=== PATIENT | male | born 1985 | race Caucasian/White ===

== ENCOUNTER 2022-12-04 12:45 | Emergency (ER) | payer OTHER, MEDICAID, SELFPAY ==
[2022-12-04 12:55] VITALS: BP 144/103; PULSE 98; RESP 16; TEMP 36.2; O2SAT 97; BMI 23.6
[2022-12-04 13:19] LABS: Appearance Urine UA CLEAR; Bilirubin Urine UA NEGATIVE (NEGATIVE); Color Urine UA YELLOW; Glucose Urine UA NEGATIVE (Negative); Ketones Urine UA NEGATIVE (NEGATIVE); Leukocyte Esterase Urine UA NEGATIVE (NEGATIVE); Nitrite Urine UA NEGATIVE (Negative); Occult Blood Urine UA NEGATIVE (Negative); Protein Urine UA TRACE (Negative); Specific Gravity Urine UA 1.015 (1.000-1.035); Urobilinogen Urine UA 0.2 E.U./dL (0.2)
--- NOTE | 2022-12-04 13:30 | PC.NURSE ---
Addendum entered by Matilde Crow CNA 12/04/22 17:05: provider and friend bedside speaking with pt. Addendum entered by Matilde Crow CNA 12/04/22 16:48: pt. lying down. friend and INFORMATICS EDUCATOR at bedside Addendum entered by Matilde Crow CNA 12/04/22 16:30: pt. laying down with eyes closed, snoring. respirations are even and non labored. left meal tray on bedside table. pt. friend bryan is bedside. Addendum entered by Matilde Crow CNA 12/04/22 14:30: pt. lying down, scottie Molina is bedside Addendum entered by Matilde Crow CNA 12/04/22 14:15: pt. lying down, RN bedside speaking with pt. Addendum entered by Matilde Crow CNA 12/04/22 14:01: pt. sitting up in bed eating chips Original Note: MATERIALS HANDLER note pt. lying on bed. friend is bedside
[2022-12-04 13:32] LABS: UR Morphine/Opiate cutoff 300 Negative (Negative); Ur Creatinine Normal (Normal); Ur Specific Gravity Normal (Normal); Urine Amphetamines Negative (Negative); Urine Barbiturates Negative (Negative); Urine Benzodiazepines Negative (Negative); Urine Cocaine Negative (Negative); Urine MDMA Negative (Negative); Urine Methadone Negative (Negative); Urine Methamphetamines Negative (Negative); Urine Oxycodone Negative (Negative); Urine Phencyclidine Negative (Negative); Urine Tetrahydrocannabinol Negative (Negative); Urine Tricyclic Antidepressant Negative (Negative); Urine pH Normal (Normal)
[2022-12-04 13:48] LABS: Bacteria Urine None Seen; COVID19 -Nasal RAPID Negative (Negative); Culture Indicated Urine Cult Not Indicated; RBC Urine None Seen (0-5/HPF); Squamous Epithelial Cell Urine None Seen (0-5/HPF); WBC Urine None Seen (0-5/HPF)
[2022-12-04] MEDS: LORazepam 2 MG/ML INJ 1 MG IV ×4 (13:50→21:19)
[2022-12-04 13:53] LABS: Add Manual Diff / Slide Review NO; Basophils Absolute Auto 100 /uL (0-100); Basophils Percent Auto 1.1 % (0-2); Eosinophils Absolute Auto 0 /uL (0-450); Eosinophils Percent Auto 0.3 % (2-4); Hematocrit 41.2 % (41-53); Hemoglobin 14.2 g/dL (13.5-17.5); Lymphocytes Absolute Auto 1400 /uL (1100-4500); Lymphocytes Percent Auto 21.6 % (25-40); Mean Corpuscular HGB Conc 34.6 % (30-36); Mean Corpuscular Hemoglobin 32.5 PG (26-34); Mean Corpuscular Volume 93.9 fL (80-100); Monocytes Absolute Auto 500 /uL (0-900); Monocytes Percent Auto 7.2 % (3-14); Neutrophils Absolute Auto 4600 /uL (1500-7000); Neutrophils Percent Auto 69.8 % (50-75); Platelet Count 203 X10^3/uL (150-400); Red Blood Cell Count 4.38 X10^6/uL (4.5-5.9); Red Cell Distribution Width 12.5 % (11.6-14.8); White Blood Cell Count 6.6 X10^3/uL (4.5-11.0)
--- NOTE | 2022-12-04 13:57 | CM.SWNOTE ---
INSPECTOR FLOOR Assessment INSPECTOR FLOOR - Sweatband Cutting Machine Operator Assessment INSPECTOR FLOOR/Sweatband Cutting Machine Operator Assessment Time Spent with Patient Start date 12/04/22 Visit Start Time 12:55 End date 12/04/22 Visit End Time 13:05 Total time Care Management spent on 15 minutes patient visit-in minutes Mental Health Screening Include Onset, Duration, Intensity Presenting Problem Patient presents to ED with friend due to patient's increasing SI, relapse on ETOH and increasing depression and anxiety. Patient has thoughts of SI plans but states I don't want to do anything stupid . Patient endorses hx of suicide attempt when he was 24 . Precipitating Event(s) Patient presents as tearful and asks friend to describe what has been going on recently for patient. It is reported that patient's girlfriend broke up with him last week, patient has been having job stressors and recently lost his job, and patient relapsed on ETOH after months of sobriety. Patient endorses he recently moved to the area as well. Patient Strengths Patient has very supportive friend who called [facility] and consulted with [facility] and patient was recommended to go to ED. Patient is voluntary and seeking BH/JUSTIN treatment. Current Behavioral Health Provider(s) No current provider, patient Include Facility, Provider, Ph. # endorses interest in MH provider. Patient endorses hx of engaging with 12 step program. Psych. Hx Mental Health and Chemical Patient has hx reported Dependency anxiety, depression, SI, Suicide attempt and hx of ETOH use. Patient endorses that he was sober for a few months until recent relapse after breakup and has been drinking a lot of Whiskey. Family Hx of Behavioral Abuse None reported Psychiatric Hospitalizations (date(s)/ Patient endorses hx of location) voluntary hospitalization at [facility] in 2019 and hx of hospitalization after intentional overdose when he was 24 but patient endorses he does not recall where he went . Psychosocial information & Support Patient is recently homeless, Systems resides on [place], [place]. Patient has good support from friend that is with him today and friends in the area. 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 Legal Concerns Legal Matters - Outstanding Issues None reported Mental Status Orientation (Person/Place/Time) A/Ox4 Stated Mood trying to hold it together Affect (Congruent with Mood?) depressed, tearful, full range , congruent with mood Thought Content - Specify/Describe None reported Obsessions, Delusions, Hallucinations Thought Processes (Xzlbims-Cgdsecqk-Eclu coherent Ddclsqeb-Kgkypkql-Kooprlbbng- Mxnddqlepbgmic-Nmzyzof-Ldjgptensetz- Thought Blocking) Speech (Tkzvty-Kphp-Pnhferb-Rapid-Soft- slow, mumbles when tearful Loud-Pressured) Motor (Obkpwk-Bvkuozphv-Lbvx-Other) normal Insight (Djdu-Vhce-Qvxq/Limited) fair Judgement (Dxtx-Lxjl-Uwda/Limited) fair Impulse Control (Adequate-Impaired) adequate Memory (Obcnryjtz-Kukkni-Cfvceq, intact, not formally assessed Impaired-Intact) Concentration (Intact-Impaired) intact Attention (Intact-Impaired) intact Behavior (Appropriate-Inappropriate) appropriate Additional Comment Patient presents as calm, communicative and cooperative. Risk Assessment Suicidal Ideation (Plan) Yes Homicidal Ideation (Plan) No Comment Patient endorses increasing SI in the last week with thoughts of crashing his car, patient endorses he does not want to act on it. Patient endorses hx of intentional suicide attempt when he was 24 , 13 years ago when he overdosed on medication, woke up in a hospital bed and went to inpatient. Intervention Intervention INSPECTOR FLOOR enters triage room to meet with patient. Present in room is patient, patient's friend and first cook. Patient gives consent for friend to be present. Patient presents as depressed and tearful and has a difficult time talking about significant life stressors recently. Patient's friend is asked by patient to speak for him. Patient endorses he is seeking help and he is worried for his safety due to his increasing SI. INSPECTOR FLOOR discusses voluntary hospitalization and patient endorses agreement and understanding. It is the opinion of this INSPECTOR FLOOR that patient is appropriate for and will benefit from voluntary inpatient hospitalization for crisis stabilization, safety and medication management. INSPECTOR FLOOR reviews the above with ED provider GENI Graham who indicates agreement and understanding. Plan RA Plan INSPECTOR FLOOR to seek voluntary inpatient bed for patient upon medical clearance. APARNA JaySW
[2022-12-04 14:08] LABS: Acetaminophen < 10 ug/mL (10-30); Alanine Aminotransferase 19 IU/L (<50); Albumin 4.5 g/dL (3.5-5.0); Albumin Globulin Ratio 1.4 (1.0-2.8); Alkaline Phosphatase 58 U/L (38-126); Aspartate Aminotransferase 32 IU/L (17-59); BUN Creatinine Ratio 9.9 (6-22); Bilirubin Total 0.4 mg/dL (0.2-1.3); Blood Urea Nitrogen 7 mg/dL (9-20); Carbon Dioxide 27 mmol/L (22-32); Chloride 102 mmol/L (98-107); Estimated Glomerular Filt Rate > 60 mL/min (>60); Ethanol (ETOH) < 10 mg/dL; Globulin 3.3 g/dL (1.7-4.1); Glucose 93 mg/dL (70-100); HEMOLYSIS < 15 (0-50); Potassium 3.7 mmol/L (3.4-5.1); Salicylate < 1.0 mg/dL (<20); Sodium 139 mmol/L (137-145); Total Protein 7.8 g/dL (6.3-8.2)
--- NOTE | 2022-12-04 14:24 | PC.NURSE ---
This RNs first conversation with patient. Pt states he has hx of psychiatric treatment, hospitalization and psych medications. States he's been sober for 30 days, no longer has an AA sponsor and his girlfriend just broke up with him. Pt states he has suicidal ideation and wants psychiatric evaluation and hospitalization. Patient reports he started the day yesterday drinking wine, then transitioned to liquor, then to IPA/Lagers until midnight. States he is homeless and will be living in his van in a friend's driveway soon. Pt states he has no family that he is in touch with at this time. Pt came to ED with a friend who just recently left. New friend is in the room with patient. Provider at the bedside.
--- NOTE | 2022-12-04 14:43 | ED_ITS ---
HPI - Psych <Sam Bryant PA-C - Last Filed: 12/04/22 20:32> General Chief Complaint: Psychiatric Symptoms Stated Complaint: [facility] sent/ SI/ETOH withdrawl Time Seen by Provider: 12/04/22 13:04 History of Present Illness HPI Narrative: 37-year-old male with no reported past medical history presents to the ED for voluntary hospitalization for suicidal ideation and alcohol detox. Patient endorses that he used to be a heavy alcohol drinker, however he was able to detox and stay sober for a month or 2, but started drinking last week. Patient states that his relapse was due to a break-up with his girlfriend that occurred last week. Patient states that he feels like he is falling apart and would like some help. Patient endorses suicidal ideation, says he has thought of driving his van of the road. Patient not acted on those thoughts thus far. Patient does endorse that he has a distant history of a suicide attempt where he tried to overdose on some pills. This was when he was in his mid 20s. Patient states that he is feeling very anxious. Patient is very tearful in the ED. Patient denies auditory or visual hallucinations. Patient denies homicidal ideation. Patient states that he has had a hard time eating and sleeping over the last week. Patient endorses drinking heavily over this last week. Patient's last drink was last night. Patient endorses that he has a history of going into withdrawals when he is heavily drinking, but denies that he is experiencing any of those symptoms currently in the ED. Patient has not seen a counselor or psychiatrist in the past and is not on any psychiatric medications. Patient denies any physical symptoms including fevers, chills, chest pain, shortness of breath, nausea, vomiting, abdominal pain, dysuria, diarrhea, lightheadedness, dizziness, syncope. Related Data Allergies Allergy/AdvReac Type Severity Reaction Status Date / Time amoxicillin Allergy Verified 12/04/22 12:54 Review of Systems <Sam Bryant PA-C - Last Filed: 12/04/22 20:32> Review of Systems ROS Unobtainable: All systems reviewed & are unremarkable except as noted in HPI and below Constitutional Constitutional: Denies chills, Denies fatigue, Denies fever(s), Denies frequent falls, Denies lethargy and Denies weakness Eyes Eyes: Denies change in vision, Denies eye discharge, Denies irritation and Denies loss of vision ENT Ears, Nose, Mouth, and Throat: Denies change in voice, Denies dizziness, Denies neck pain, Denies sore throat and Denies throat swelling Cardiovascular Cardiovascular: Denies chest pain, Denies irregular heart rhythm, Denies lightheadedness, Denies palpitations, Denies dyspnea, Denies dyspnea on exertion and Denies orthopnea Respiratory Respiratory: Denies cough, Denies dyspnea, Denies dyspnea on exertion and Denies wheezing Gastrointestinal Gastrointestinal: Denies abdominal pain, Denies change in bowel habits, Denies diarrhea, Denies nausea and Denies vomiting Genitourinary Genitourinary: Denies hematuria, Denies flank pain, Denies urinary incontinence and Denies urinary urgency Musculoskeletal Musculoskeletal: Denies back pain, Denies muscle weakness, Denies neck pain, Denies numbness and Denies tingling Integumentary/Breasts Skin/Breast: Denies pruritus, Denies erythema, Denies rash and Denies wounds Neurologic Neurologic: Denies behavioral changes, Denies confusion, Denies dizziness, Denies frequent falls, Denies loss of vision, Denies numbness, Denies tingling and Denies weakness Psychiatric Psychiatric: Reports abnormal sleep pattern, Reports anxiety, Denies behavioral changes, Reports change in appetite, Denies confusion, Reports depression, Denies auditory hallucinations, Denies visual hallucinations, Denies homicidal ideation and Reports suicidal ideation Endocrine Endocrine: Denies fatigue, Denies flushing and Denies palpitations Hematologic/Lymphatic Hematologic/Lymphatic: Denies easy bruising Allergic/Immunologic Allergic/Immunologic: Denies urticaria, Denies throat swelling and Denies wheez ing Exam <Sam Bryant PA-C - Last Filed: 12/04/22 20:32> Narrative Exam Narrative: Const General:?cooperative, teary HENMT Head:?normal to inspection Ears:?hearing grossly normal bilaterally Nose:?external nose normal Face and sinus:?normal facial exam and sinuses nontender Mouth:?oral mucosae normal Throat:?posterior oropharynx normal Eyes General:?appearance normal, both eyes and all related structures Neck Neck:?normal visual inspection and no lymphadenopathy noted Resp Effort & Inspection:?normal respiratory effort Auscultation:?clear to auscultation bilaterally Cardio Rate:?regular rate Rhythm:?regular rhythm Psychiatric Patient appears tearful, is cooperative, calm and seeking voluntary placement to a medical health facility Neuro General:?patient alert, patient awake and patient oriented x3 Initial Vital Signs Initial Vital Signs: Vital Signs Temperature 97.1 F L 12/04/22 12:55 Pulse Rate 98 H 12/04/22 12:55 Respiratory Rate 16 12/04/22 12:55 Blood Pressure 144/103 H 12/04/22 12:55 Pulse Oximetry 97 12/04/22 12:55 Oxygen Delivery Method Room Air 12/04/22 12:55 <Brien Arriaga MD - Last Filed: 12/05/22 16:29> Initial Vital Signs Initial Vital Signs: Vital Signs Temperature 97.1 F L 12/04/22 12:55 Pulse Rate 98 H 12/04/22 12:55 Respiratory Rate 16 12/04/22 12:55 Blood Pressure 144/103 H 12/04/22 12:55 Pulse Oximetry 97 12/04/22 12:55 Oxygen Delivery Method Room Air 12/04/22 12:55 Course <Sam Bryant PA-C - Last Filed: 12/04/22 20:32> Orders Ordered: Discontinued Medications Lorazepam (Lorazepam 0.5 Mg Tablet) 1 mg PO NOW ONE Stop: 12/04/22 13:23 Last Admin: 12/04/22 14:07 Dose: Not Given Documented By: GORDO Lorazepam (Lorazepam 2 Mg/Ml Inj) 1 mg IV NOW ONE Stop: 12/04/22 13:25 Last Admin: 12/04/22 13:50 Dose: 1 mg Documented By: JAZMYNE Lorazepam (Lorazepam 2 Mg/Ml Inj) 1 mg IV NOW ONE Stop: 12/04/22 15:25 Last Admin: 12/04/22 15:39 Dose: 1 mg Documented By: JAZMYNE Lorazepam (Lorazepam 2 Mg/Ml Inj) 1 mg IV NOW ONE Stop: 12/04/22 18:08 Last Admin: 12/04/22 18:10 Dose: 1 mg Documented By: GORDO(2) Lorazepam (Lorazepam 2 Mg/Ml Inj) 1 mg IV NOW ONE Stop: 12/04/22 21:00 Last Admin: 12/04/22 21:19 Dose: 1 mg Documented By: ERIKA Lorazepam (Lorazepam 2 Mg/Ml Inj) 1 mg IV NOW ONE Stop: 12/05/22 05:10 Last Admin: 12/05/22 05:22 Dose: 1 mg Documented By: WILY Lorazepam (Lorazepam 0.5 Mg Tablet) 1 mg PO NOW ONE Stop: 12/05/22 09:06 Last Admin: 12/05/22 09:10 Dose: 1 mg Documented By: JIGNESH Lorazepam (Lorazepam 0.5 Mg Tablet) 1 mg PO NOW ONE Stop: 12/05/22 11:10 Last Admin: 12/05/22 11:25 Dose: 1 mg Documented By: JIGNESH Lorazepam (Lorazepam 0.5 Mg Tablet) 1 mg PO NOW ONE Stop: 12/05/22 14:34 Last Admin: 12/05/22 14:37 Dose: 1 mg Documented By: RB Vital Signs Vital signs: Vital Signs - 8 hr 12/05/22 09:03 12/05/22 13:27 Pulse Rate 113 H 101 H Blood Pressure 155/85 H 129/80 Pulse Oximetry 100 98 Oxygen Delivery Method Room Air Room Air <Brien Arriaga MD - Last Filed: 12/05/22 16:29> Course Course Narrative: Care was assumed from Dr. Muñoz at change of shift this morning. Patient has a history of alcohol abuse. He presents with suicidal ideation. He complains anxiety, Ativan has been given. There was assumed bed available at [facility] once sobriety was obvious. Change in shift resulted in a 2nd evaluation by 2nd doctor, who declined the patient on the assumption that he has dual diagnosis. A bed is available [facility]. He has been accepted. Injuring the patient, he complains again of anxiety. We will continue to give a modest amount of Ativan while here in the ER. I questioned him about suicidal ideation. He did not clearly answer me, but eye contact was broken and he started crying. He is compliant with care. He is oriented. He is stable for transport to the mental health facility.12/05/22@15:52. Haile GAMING Orders Ordered: Discontinued Medications Lorazepam (Lorazepam 0.5 Mg Tablet) 1 mg PO NOW ONE Stop: 12/04/22 13:23 Last Admin: 12/04/22 14:07 Dose: Not Given Documented By: GORDO Lorazepam (Lorazepam 2 Mg/Ml Inj) 1 mg IV NOW ONE Stop: 12/04/22 13:25 Last Admin: 12/04/22 13:50 Dose: 1 mg Documented By: JAZMYNE Lorazepam (Lorazepam 2 Mg/Ml Inj) 1 mg IV NOW ONE Stop: 12/04/22 15:25 Last Admin: 12/04/22 15:39 Dose: 1 mg Documented By: JAZMYNE Lorazepam (Lorazepam 2 Mg/Ml Inj) 1 mg IV NOW ONE Stop: 12/04/22 18:08 Last Admin: 12/04/22 18:10 Dose: 1 mg Documented By: GORDO(2) Lorazepam (Lorazepam 2 Mg/Ml Inj) 1 mg IV NOW ONE Stop: 12/04/22 21:00 Last Admin: 12/04/22 21:19 Dose: 1 mg Documented By: ERIKA Lorazepam (Lorazepam 2 Mg/Ml Inj) 1 mg IV NOW ONE Stop: 12/05/22 05:10 Last Admin: 12/05/22 05:22 Dose: 1 mg Documented By: WILY Lorazepam (Lorazepam 0.5 Mg Tablet) 1 mg PO NOW ONE Stop: 12/05/22 09:06 Last Admin: 12/05/22 09:10 Dose: 1 mg Documented By: JIGNESH Lorazepam (Lorazepam 0.5 Mg Tablet) 1 mg PO NOW ONE Stop: 12/05/22 11:10 Last Admin: 12/05/22 11:25 Dose: 1 mg Documented By: JIGNESH Lorazepam (Lorazepam 0.5 Mg Tablet) 1 mg PO NOW ONE Stop: 12/05/22 14:34 Last Admin: 12/05/22 14:37 Dose: 1 mg Documented By: JIGNESH Vital Signs Vital signs: Vital Signs - 8 hr 12/05/22 09:03 12/05/22 13:27 Pulse Rate 113 H 101 H Blood Pressure 155/85 H 129/80 Pulse Oximetry 100 98 Oxygen Delivery Method Room Air Room Air MDM - Psych <Sam Bryant PA-C - Last Filed: 12/04/22 20:32> Lab Data 12/04/22 13:42 12/04/22 13:42 Labs: Lab Results 12/04/22 12/04/22 12/04/22 Range/Units 13:03 13:03 13:10 WBC (4.5-11.0) X10^3/uL RBC (4.5-5.9) X10^6/uL Hgb (13.5-17.5) g/dL Hct (41-53) % MCV (80-100) fL MCH (26-34) PG MCHC (30-36) % RDW (11.6-14.8) % Plt Count (150-400) X10^3/uL Neut % (Auto) (50-75) % Lymph % (Auto) (25-40) % [place] % (Auto) (3-14) % Eos % (Auto) (2-4) % Baso % (Auto) (0-2) % Neut # (Auto) (4687-1919) /uL Lymph # (Auto) (4756-7910) /uL [place] # (Auto) (0-900) /uL Eos # (Auto) (0-450) /uL Baso # (Auto) (0-100) /uL Sodium (137-145) mmol/L Potassium (3.4-5.1) mmol/L Chloride (98-107) mmol/L Carbon Dioxide (22-32) mmol/L BUN (9-20) mg/dL Creatinine (0.66-1.25) mg/dL Estimated GFR (>60) mL/min BUN/Creatinine Ratio (6-22) Glucose (70-100) mg/dL Calcium (8.4-10.2) mg/dL Magnesium (1.6-2.3) mg/dL Total Bilirubin (0.2-1.3) mg/dL AST (17-59) IU/L ALT (<50) IU/L Alkaline Phosphatase (38-126) U/L Total Creatine Kinase (55-170) U/L Total Protein (6.3-8.2) g/dL Albumin (3.5-5.0) g/dL Globulin (1.7-4.1) g/dL Albumin/Globulin Ratio (1.0-2.8) TSH (0.47-4.68) uIU/mL Free T4 (0.78-2.19) ng/dL Urine Color Yellow Urine Appearance Clear Urine pH 7.0 (4.5-8.0) Ur Specific [place] 1.015 (1.000-1.035) Urine Protein Trace H (Negative) Urine Glucose (UA) Negative (Negative) g/dL Urine Ketones Negative (NEGATIVE) Urine Occult Blood Negative (Negative) Urine Nitrate Negative (Negative) Urine Bilirubin Negative (NEGATIVE) Urine Urobilinogen 0.2 (0.2) E.U./dL Ur Leukocyte Esterase Negative (NEGATIVE) Urine RBC None seen (0-5/HPF) Urine WBC None seen (0-5/HPF) Ur Squamous Epith Cells None seen (0-5/HPF) Urine Bacteria None seen (None) Ur Culture Indicated? Cult not indicated Salicylates (<20) mg/dL U Opiates 300ng/mL cut Negative (Negative) Ur Oxycodone Screen Negative (Negative) Urine Methadone Screen Negative (Negative) Acetaminophen (10-30) ug/mL Ur Barbiturates Screen Negative (Negative) U Tricyclic Antidepress Negative (Negative) Ur Phencyclidine Scrn Negative (Negative) Ur Amphetamines Screen Negative (Negative) U Methamphetamines Scrn Negative (Negative) Ur MDMA Scrn (Ecstasy) Negative (Negative) U Benzodiazepines Scrn Negative (Negative) Urine Cocaine Screen Negative (Negative) U Marijuana (THC) Screen Negative (Negative) Ethyl Alcohol ( - 10) mg/dL SARS-CoV-2 (PCR) Negative (Negative) 12/04/22 12/04/22 12/04/22 Range/Units 13:42 13:42 13:42 WBC 6.6 (4.5-11.0) X10^3/uL RBC 4.38 L (4.5-5.9) X10^6/uL Hgb 14.2 (13.5-17.5) g/dL Hct 41.2 (41-53) % MCV 93.9 (80-100) fL MCH 32.5 (26-34) PG MCHC 34.6 (30-36) % RDW 12.5 (11.6-14.8) % Plt Count 203 (150-400) X10^3/uL Neut % (Auto) 69.8 (50-75) % Lymph % (Auto) 21.6 L (25-40) % [place] % (Auto) 7.2 (3-14) % Eos % (Auto) 0.3 L (2-4) % Baso % (Auto) 1.1 (0-2) % Neut # (Auto) 4600 (8867-7431) /uL Lymph # (Auto) 1400 (4222-1357) /uL [place] # (Auto) 500 (0-900) /uL Eos # (Auto) 0 (0-450) /uL Baso # (Auto) 100 (0-100) /uL Sodium 139 (137-145) mmol/L Potassium 3.7 (3.4-5.1) mmol/L Chloride 102 (98-107) mmol/L Carbon Dioxide 27 (22-32) mmol/L BUN 7 L (9-20) mg/dL Creatinine 0.71 (0.66-1.25) mg/dL Estimated GFR > 60 (>60) mL/min BUN/Creatinine Ratio 9.9 (6-22) Glucose 93 (70-100) mg/dL Calcium 9.0 (8.4-10.2) mg/dL Magnesium (1.6-2.3) mg/dL Total Bilirubin 0.4 (0.2-1.3) mg/dL AST 32 (17-59) IU/L ALT 19 (<50) IU/L Alkaline Phosphatase 58 (38-126) U/L Total Creatine Kinase (55-170) U/L Total Protein 7.8 (6.3-8.2) g/dL Albumin 4.5 (3.5-5.0) g/dL Globulin 3.3 (1.7-4.1) g/dL Albumin/Globulin Ratio 1.4 (1.0-2.8) TSH 0.287 L (0.47-4.68) uIU/mL Free T4 0.99 (0.78-2.19) ng/dL Urine Color Urine Appearance Urine pH (4.5-8.0) Ur Specific [place] (1.000-1.035) Urine Protein (Negative) Urine Glucose (UA) (Negative) g/dL Urine Ketones (NEGATIVE) Urine Occult Blood (Negative) Urine Nitrate (Negative) Urine Bilirubin (NEGATIVE) Urine Urobilinogen (0.2) E.U./dL Ur Leukocyte Esterase (NEGATIVE) Urine RBC (0-5/HPF) Urine WBC (0-5/HPF) Ur Squamous Epith Cells (0-5/HPF) Urine Bacteria (None) Ur Culture Indicated? Salicylates < 1.0 (<20) mg/dL U Opiates 300ng/mL cut (Negative) Ur Oxycodone Screen (Negative) Urine Methadone Screen (Negative) Acetaminophen < 10 (10-30) ug/mL Ur Barbiturates Screen (Negative) U Tricyclic Antidepress (Negative) Ur Phencyclidine Scrn (Negative) Ur Amphetamines Screen (Negative) U Methamphetamines Scrn (Negative) Ur MDMA Scrn (Ecstasy) (Negative) U Benzodiazepines Scrn (Negative) Urine Cocaine Screen (Negative) U Marijuana (THC) Screen (Negative) Ethyl Alcohol < 10 ( - 10) mg/dL SARS-CoV-2 (PCR) (Negative) 12/04/22 Range/Units 13:42 WBC (4.5-11.0) X10^3/uL RBC (4.5-5.9) X10^6/uL Hgb (13.5-17.5) g/dL Hct (41-53) % MCV (80-100) fL MCH (26-34) PG MCHC (30-36) % RDW (11.6-14.8) % Plt Count (150-400) X10^3/uL Neut % (Auto) (50-75) % Lymph % (Auto) (25-40) % [place] % (Auto) (3-14) % Eos % (Auto) (2-4) % Baso % (Auto) (0-2) % Neut # (Auto) (4710-7790) /uL Lymph # (Auto) (2541-9651) /uL [place] # (Auto) (0-900) /uL Eos # (Auto) (0-450) /uL Baso # (Auto) (0-100) /uL Sodium (137-145) mmol/L Potassium (3.4-5.1) mmol/L Chloride (98-107) mmol/L Carbon Dioxide (22-32) mmol/L BUN (9-20) mg/dL Creatinine (0.66-1.25) mg/dL Estimated GFR (>60) mL/min BUN/Creatinine Ratio (6-22) Glucose (70-100) mg/dL Calcium (8.4-10.2) mg/dL Magnesium 1.8 (1.6-2.3) mg/dL Total Bilirubin (0.2-1.3) mg/dL AST (17-59) IU/L ALT (<50) IU/L Alkaline Phosphatase (38-126) U/L Total Creatine Kinase 77 (55-170) U/L Total Protein (6.3-8.2) g/dL Albumin (3.5-5.0) g/dL Globulin (1.7-4.1) g/dL Albumin/Globulin Ratio (1.0-2.8) TSH (0.47-4.68) uIU/mL Free T4 (0.78-2.19) ng/dL Urine Color Urine Appearance Urine pH (4.5-8.0) Ur Specific [place] (1.000-1.035) Urine Protein (Negative) Urine Glucose (UA) (Negative) g/dL Urine Ketones (NEGATIVE) Urine Occult Blood (Negative) Urine Nitrate (Negative) Urine Bilirubin (NEGATIVE) Urine Urobilinogen (0.2) E.U./dL Ur Leukocyte Esterase (NEGATIVE) Urine RBC (0-5/HPF) Urine WBC (0-5/HPF) Ur Squamous Epith Cells (0-5/HPF) Urine Bacteria (None) Ur Culture Indicated? Salicylates (<20) mg/dL U Opiates 300ng/mL cut (Negative) Ur Oxycodone Screen (Negative) Urine Methadone Screen (Negative) Acetaminophen (10-30) ug/mL Ur Barbiturates Screen (Negative) U Tricyclic Antidepress (Negative) Ur Phencyclidine Scrn (Negative) Ur Amphetamines Screen (Negative) U Methamphetamines Scrn (Negative) Ur MDMA Scrn (Ecstasy) (Negative) U Benzodiazepines Scrn (Negative) Urine Cocaine Screen (Negative) U Marijuana (THC) Screen (Negative) Ethyl Alcohol ( - 10) mg/dL SARS-CoV-2 (PCR) (Negative) [facility] Narrative Medical decision making narrative: 37-year-old male with no reported past medical history presents to the ED for voluntary hospitalization for suicidal ideation and alcohol detox. Given that patient is seeking voluntary hospitalization for mental health reasons and has suicidal ideation, will medically clear patient to rule out organic causes of symptoms. Social work has been involved to assist with patient placement. Ativan given for patient's anxiety. Patient's workup without acute findings. Patient is medically cleared for transfer to a mental health facility. Patient has been stable, calm and [place]ol[place] ative in the ED. Patient's ETOH level was 0 as of 13:03, patient has shown no signs of withdrawal. CIWA scores Q 2 hours have been 0. [facility] is reviewing to see when they can accept the patient. Patient is siged out to Dr. Gurvinder Glez <Brien Arriaga MD - Last Filed: 12/05/22 16:29> Lab Data Labs: Lab Results 12/04/22 12/04/22 12/04/22 Range/Units 13:03 13:03 13:10 WBC (4.5-11.0) X10^3/uL RBC (4.5-5.9) X10^6/uL Hgb (13.5-17.5) g/dL Hct (41-53) % MCV (80-100) fL MCH (26-34) PG MCHC (30-36) % RDW (11.6-14.8) % Plt Count (150-400) X10^3/uL Neut % (Auto) (50-75) % Lymph % (Auto) (25-40) % [place] % (Auto) (3-14) % Eos % (Auto) (2-4) % Baso % (Auto) (0-2) % Neut # (Auto) (1907-0708) /uL Lymph # (Auto) (3059-7429) /uL [place] # (Auto) (0-900) /uL Eos # (Auto) (0-450) /uL Baso # (Auto) (0-100) /uL Sodium (137-145) mmol/L Potassium (3.4-5.1) mmol/L Chloride (98-107) mmol/L Carbon Dioxide (22-32) mmol/L BUN (9-20) mg/dL Creatinine (0.66-1.25) mg/dL Estimated GFR (>60) mL/min BUN/Creatinine Ratio (6-22) Glucose (70-100) mg/dL Calcium (8.4-10.2) mg/dL Magnesium (1.6-2.3) mg/dL Total Bilirubin (0.2-1.3) mg/dL AST (17-59) IU/L ALT (<50) IU/L Alkaline Phosphatase (38-126) U/L Total Creatine Kinase (55-170) U/L Total Protein (6.3-8.2) g/dL Albumin (3.5-5.0) g/dL Globulin (1.7-4.1) g/dL Albumin/Globulin Ratio (1.0-2.8) TSH (0.47-4.68) uIU/mL Free T4 (0.78-2.19) ng/dL Urine Color Yellow Urine Appearance Clear Urine pH 7.0 (4.5-8.0) Ur Specific [place] 1.015 (1.000-1.035) Urine Protein Trace H (Negative) Urine Glucose (UA) Negative (Negative) g/dL Urine Ketones Negative (NEGATIVE) Urine Occult Blood Negative (Negative) Urine Nitrate Negative (Negative) Urine Bilirubin Negative (NEGATIVE) Urine Urobilinogen 0.2 (0.2) E.U./dL Ur Leukocyte Esterase Negative (NEGATIVE) Urine RBC None seen (0-5/HPF) Urine WBC None seen (0-5/HPF) Ur Squamous Epith Cells None seen (0-5/HPF) Urine Bacteria None seen (None) Ur Culture Indicated? Cult not indicated Salicylates (<20) mg/dL U Opiates 300ng/mL cut Negative (Negative) Ur Oxycodone Screen Negative (Negative) Urine Methadone Screen Negative (Negative) Acetaminophen (10-30) ug/mL Ur Barbiturates Screen Negative (Negative) U Tricyclic Antidepress Negative (Negative) Ur Phencyclidine Scrn Negative (Negative) Ur Amphetamines Screen Negative (Negative) U Methamphetamines Scrn Negative (Negative) Ur MDMA Scrn (Ecstasy) Negative (Negative) U Benzodiazepines Scrn Negative (Negative) Urine Cocaine Screen Negative (Negative) U Marijuana (THC) Screen Negative (Negative) Ethyl Alcohol ( - 10) mg/dL SARS-CoV-2 (PCR) Negative (Negative) 12/04/22 12/04/22 12/04/22 Range/Units 13:42 13:42 13:42 WBC 6.6 (4.5-11.0) X10^3/uL RBC 4.38 L (4.5-5.9) X10^6/uL Hgb 14.2 (13.5-17.5) g/dL Hct 41.2 (41-53) % MCV 93.9 (80-100) fL MCH 32.5 (26-34) PG MCHC 34.6 (30-36) % RDW 12.5 (11.6-14.8) % Plt Count 203 (150-400) X10^3/uL Neut % (Auto) 69.8 (50-75) % Lymph % (Auto) 21.6 L (25-40) % [place] % (Auto) 7.2 (3-14) % Eos % (Auto) 0.3 L (2-4) % Baso % (Auto) 1.1 (0-2) % Neut # (Auto) 4600 (4274-9957) /uL Lymph # (Auto) 1400 (6756-9346) /uL [place] # (Auto) 500 (0-900) /uL Eos # (Auto) 0 (0-450) /uL Baso # (Auto) 100 (0-100) /uL Sodium 139 (137-145) mmol/L Potassium 3.7 (3.4-5.1) mmol/L Chloride 102 (98-107) mmol/L Carbon Dioxide 27 (22-32) mmol/L BUN 7 L (9-20) mg/dL Creatinine 0.71 (0.66-1.25) mg/dL Estimated GFR > 60 (>60) mL/min BUN/Creatinine Ratio 9.9 (6-22) Glucose 93 (70-100) mg/dL Calcium 9.0 (8.4-10.2) mg/dL Magnesium (1.6-2.3) mg/dL Total Bilirubin 0.4 (0.2-1.3) mg/dL AST 32 (17-59) IU/L ALT 19 (<50) IU/L Alkaline Phosphatase 58 (38-126) U/L Total Creatine Kinase (55-170) U/L Total Protein 7.8 (6.3-8.2) g/dL Albumin 4.5 (3.5-5.0) g/dL Globulin 3.3 (1.7-4.1) g/dL Albumin/Globulin Ratio 1.4 (1.0-2.8) TSH 0.287 L (0.47-4.68) uIU/mL Free T4 0.99 (0.78-2.19) ng/dL Urine Color Urine Appearance Urine pH (4.5-8.0) Ur Specific [place] (1.000-1.035) Urine Protein (Negative) Urine Glucose (UA) (Negative) g/dL Urine Ketones (NEGATIVE) Urine Occult Blood (Negative) Urine Nitrate (Negative) Urine Bilirubin (NEGATIVE) Urine Urobilinogen (0.2) E.U./dL Ur Leukocyte Esterase (NEGATIVE) Urine RBC (0-5/HPF) Urine WBC (0-5/HPF) Ur Squamous Epith Cells (0-5/HPF) Urine Bacteria (None) Ur Culture Indicated? Salicylates < 1.0 (<20) mg/dL U Opiates 300ng/mL cut (Negative) Ur Oxycodone Screen (Negative) Urine Methadone Screen (Negative) Acetaminophen < 10 (10-30) ug/mL Ur Barbiturates Screen (Negative) U Tricyclic Antidepress (Negative) Ur Phencyclidine Scrn (Negative) Ur Amphetamines Screen (Negative) U Methamphetamines Scrn (Negative) Ur MDMA Scrn (Ecstasy) (Negative) U Benzodiazepines Scrn (Negative) Urine Cocaine Screen (Negative) U Marijuana (THC) Screen (Negative) Ethyl Alcohol < 10 ( - 10) mg/dL SARS-CoV-2 (PCR) (Negative) 12/04/22 Range/Units 13:42 WBC (4.5-11.0) X10^3/uL RBC (4.5-5.9) X10^6/uL Hgb (13.5-17.5) g/dL Hct (41-53) % MCV (80-100) fL MCH (26-34) PG MCHC (30-36) % RDW (11.6-14.8) % Plt Count (150-400) X10^3/uL Neut % (Auto) (50-75) % Lymph % (Auto) (25-40) % [place] % (Auto) (3-14) % Eos % (Auto) (2-4) % Baso % (Auto) (0-2) % Neut # (Auto) (6433-8898) /uL Lymph # (Auto) (4495-3206) /uL [place] # (Auto) (0-900) /uL Eos # (Auto) (0-450) /uL Baso # (Auto) (0-100) /uL Sodium (137-145) mmol/L Potassium (3.4-5.1) mmol/L Chloride (98-107) mmol/L Carbon Dioxide (22-32) mmol/L BUN (9-20) mg/dL Creatinine (0.66-1.25) mg/dL Estimated GFR (>60) mL/min BUN/Creatinine Ratio (6-22) Glucose (70-100) mg/dL Calcium (8.4-10.2) mg/dL Magnesium 1.8 (1.6-2.3) mg/dL Total Bilirubin (0.2-1.3) mg/dL AST (17-59) IU/L ALT (<50) IU/L Alkaline Phosphatase (38-126) U/L Total Creatine Kinase 77 (55-170) U/L Total Protein (6.3-8.2) g/dL Albumin (3.5-5.0) g/dL Globulin (1.7-4.1) g/dL Albumin/Globulin Ratio (1.0-2.8) TSH (0.47-4.68) uIU/mL Free T4 (0.78-2.19) ng/dL Urine Color Urine Appearance Urine pH (4.5-8.0) Ur Specific [place] (1.000-1.035) Urine Protein (Negative) Urine Glucose (UA) (Negative) g/dL Urine Ketones (NEGATIVE) Urine Occult Blood (Negative) Urine Nitrate (Negative) Urine Bilirubin (NEGATIVE) Urine Urobilinogen (0.2) E.U./dL Ur Leukocyte Esterase (NEGATIVE) Urine RBC (0-5/HPF) Urine WBC (0-5/HPF) Ur Squamous Epith Cells (0-5/HPF) Urine Bacteria (None) Ur Culture Indicated? Salicylates (<20) mg/dL U Opiates 300ng/mL cut (Negative) Ur Oxycodone Screen (Negative) Urine Methadone Screen (Negative) Acetaminophen (10-30) ug/mL Ur Barbiturates Screen (Negative) U Tricyclic Antidepress (Negative) Ur Phencyclidine Scrn (Negative) Ur Amphetamines Screen (Negative) U Methamphetamines Scrn (Negative) Ur MDMA Scrn (Ecstasy) (Negative) U Benzodiazepines Scrn (Negative) Urine Cocaine Screen (Negative) U Marijuana (THC) Screen (Negative) Ethyl Alcohol ( - 10) mg/dL SARS-CoV-2 (PCR) (Negative) Discharge Plan Departure Patient Disposition: Xfer [facility] Clinical Impression: Suicidal ideation, Depression, Acute anxiety Referrals: Miscellaneous,Doctor, [Primary Care Provider] -
[2022-12-04 15:21] LABS: Free T4, Direct Thyroxine 0.99 ng/dL (0.78-2.19)
[2022-12-04 15:35] LABS: Thyroid Stimulating Hormone 0.287 uIU/mL (0.47-4.68)
[2022-12-04 15:51] LABS: Creatine Kinase 77 U/L (55-170); Magnesium 1.8 mg/dL (1.6-2.3)
[2022-12-04 16:04] VITALS: BP 127/72; PULSE 90; O2SAT 98
--- NOTE | 2022-12-04 19:16 | PC.NURSE ---
Pt has a zero CIWA, provider aware. Pt is receiving ativan PRN for anxiety related to life stressors.
--- NOTE | 2022-12-04 19:18 | CM.SWNOTE ---
HAT CLEANER Note Patient endorses preference for inpatient treatment at [facility]. HAT CLEANER endorses that there are other facilities that address dual dx JUSTIN and but patient continues to endorse preference for [facility] because he has supports in [place]. HAT CLEANER calls [facility], it is reported that they have beds and can review patient. It is reported that the accepting provider would prefer patient be monitored for 24 hours in ED prior to acceptance at [facility] due to concern for any potential withdrawal symptoms after patient's recent ETOH. Patient endorses his last drink was at aprox 2330 yesterday. Patient arrives with BAL level of zero, patient's Q2 CIWA scores continue to be zero, ED provider medically clears patient and deems patient appropriate for transfer to facility. HAT CLEANER re-faxes updated clinicals to [facility] for review at 1900. HAT CLEANER reviews plan with mental health director, ED provider and [facility]. HAT CLEANER discusses this with patient and patient endorses preference to wait for [facility] and pursue other hospitals for dual dx if [facility] declines patient. Plan: Continue to seek inpatient bed for patient. APARNA JaySW
[2022-12-05 00:02] VITALS: RESP 18
[2022-12-05] MEDS: LORazepam 2 MG/ML INJ 1 MG IV (05:22)
[2022-12-05 05:45] VITALS: RESP 16
--- NOTE | 2022-12-05 05:46 | PC.NURSE ---
WHEEL SETTER note: Patient resting in bed. Patient's friend attentive at bedside
--- NOTE | 2022-12-05 07:30 | PC.NURSE ---
Addendum entered by Matilde Crow CNA 12/05/22 16:32: NWA arrived. went in and took a set a vitals. Addendum entered by Matilde Crow CNA 12/05/22 15:36: pt. asked for coffee states he noticed he was having a headache from lack of caffeine. Addendum entered by Matilde Crow CNA 12/05/22 11:30: pt. is up using the bathroom,checked on pt. , pt. responded they are ok. pt. friend is bedside. Addendum entered by Matilde Crow CNA 12/05/22 11:00: RN speaking with patient and friend about medication pt. is wanting. Addendum entered by Matilde Crow CNA 12/05/22 10:45: pt. is asking for more anxiety meds. RN notified Addendum entered by Matilde Crow CNA 12/05/22 09:00: RN doing a 2 hour assessment. pt. phone rang and pt. silenced it and started to cry/wince. Once assessment was finished, updated vitals and pt. called back person on cell phone. pt. on the phone and friend is bedside. Addendum entered by Matilde Crow CNA 12/05/22 08:42: pt. asking for another dose of ativan that he was previously given around 0500, RN notified. Original Note: PHYLLIS note friend Tracy bedside. pt. sleeping with eyes closed, respirations are even and non-labored.
[2022-12-05 09:03] VITALS: BP 155/85; PULSE 113; O2SAT 100
[2022-12-05] MEDS: LORazepam 0.5 MG TABLET 1 MG PO ×3 (09:10→14:37)
--- NOTE | 2022-12-05 11:10 | PC.NURSE ---
This RN called inpatient treatment at [facility] for further review of this patient as we approach the 24 hour period that they requested per social secretary note from yesterday. This RN talked to Charge nurse CHEMA Gupta from the facility that reported that his provider is declining this patient admission due to their belief in patient need for duel diagnosis facility. Dr. Arriaga informed.
--- NOTE | 2022-12-05 11:17 | PC.NURSE ---
There is no CLIENT CONSULTANT currently available for consult on this patient. Inpatient social service technician contacted and this RN informed that they are unable to assist with this patient placement.
[2022-12-05 13:27] VITALS: BP 129/80; PULSE 101; O2SAT 98
[2022-12-05 16:32] VITALS: BP 143/82; PULSE 105; O2SAT 98
== END 2022-12-05 16:40 ==
PROVIDERS: Student in an Organized Health Care Education/Training Program; Emergency Provider Emergency Medicine
DX: R45.851 Suicidal ideations (principal); F32.A Depression, unspecified; F41.9 Anxiety disorder, unspecified; Z20.822 Contact with and (suspected) exposure to COVID-19
CPT/HCPCS: 36415; 80053; 80305; 80320; 80329; 81001; 82550; 83735; 84439; 84443; 85025; 87635; 93005; 96374; 96376; 99285; C9803; G0480; J2060

== ENCOUNTER → 2022-12-27 09:31 | Outpatient (CLI) | payer OTHER, MEDICAID, SELFPAY ==
[2022-12-27 19:34] LABS: Alanine Aminotransferase 19 IU/L (<50); Albumin Globulin Ratio 1.4 (1.0-2.8); Alkaline Phosphatase 75 U/L (38-126); Aspartate Aminotransferase 28 IU/L (17-59); BUN Creatinine Ratio 12.3 (6-22); Bilirubin Total 0.4 mg/dL (0.2-1.3); Blood Urea Nitrogen 10 mg/dL (9-20); Carbon Dioxide 27 mmol/L (22-32); Chloride 101 mmol/L (98-107); Cholesterol 182 mg/dL (140-199); Estimated Glomerular Filt Rate > 60 mL/min (>60); Globulin 2.9 g/dL (1.7-4.1); Glucose 108 mg/dL (70-100); HDL Cholesterol 51 mg/dL (40-60); HEMOLYSIS < 15 (0-50); LDL Cholesterol Calculated 109 mg/dL (<100); Potassium 4.3 mmol/L (3.4-5.1); Sodium 136 mmol/L (137-145); Total Protein 6.9 g/dL (6.3-8.2); Triglycerides 111 mg/dL (35-150)
[2022-12-27 19:43] LABS: Add Manual Diff / Slide Review NO; Basophils Absolute Auto 0 /uL (0-100); Basophils Percent Auto 0.5 % (0-2); Eosinophils Absolute Auto 0 /uL (0-450); Eosinophils Percent Auto 0.3 % (2-4); Hematocrit 40.7 % (41-53); Hemoglobin 14.2 g/dL (13.5-17.5); Lymphocytes Absolute Auto 1100 /uL (1100-4500); Lymphocytes Percent Auto 17.7 % (25-40); Mean Corpuscular HGB Conc 34.8 % (30-36); Mean Corpuscular Hemoglobin 33.2 PG (26-34); Mean Corpuscular Volume 95.3 fL (80-100); Monocytes Absolute Auto 700 /uL (0-900); Monocytes Percent Auto 11.9 % (3-14); Neutrophils Absolute Auto 4200 /uL (1500-7000); Neutrophils Percent Auto 69.6 % (50-75); Platelet Count 161 X10^3/uL (150-400); Red Blood Cell Count 4.27 X10^6/uL (4.5-5.9); Red Cell Distribution Width 12.8 % (11.6-14.8); White Blood Cell Count 6.1 X10^3/uL (4.5-11.0)
[2022-12-27 20:01] LABS: TSH w/ Reflex to FT4 0.85 uIU/mL (0.47-4.68)
[2022-12-27 20:20] LABS: Vitamin B12 342 pg/mL (239-931)
== END ==
PROVIDERS: Visit Provider Physician Assistant
DX: F32.A Depression, unspecified (principal); F41.9 Anxiety disorder, unspecified; F43.0 Acute stress reaction; Z79.899 Other long term (current) drug therapy
CPT/HCPCS: 80053; 80061; 82607; 84443; 85025

== ENCOUNTER → 2023-01-21 13:24 | Outpatient (CLI) | payer OTHER, MEDICAID, SELFPAY ==
[2023-01-21 21:41] LABS: Hepatitis B Surface Antigen NEGATIVE s/c (NEGATIVE)
[2023-01-21 21:56] LABS: HIV 1 & 2 Ab/Ag 4th Gen Combo NEGATIVE (NEGATIVE); Hep C Virus Ab w/Reflex Quant NEGATIVE s/c (NEGATIVE)
[2023-01-21 21:57] LABS: Urine N gonorrhoeae NOT DETECTED
[2023-01-21 21:59] LABS: Urine Chlamydia NOT DETECTED
[2023-01-23 01:54] LABS: HSV 2 IGG AB < 0.91 index (0.00-0.90)
[2023-01-23 11:16] LABS: RPR Screen Non Reactive (Non Reactive)
[2023-01-23 12:16] LABS: Fecal Immunochemical Test Negative (Negative)
== END ==
PROVIDERS: PCP Physician Assistant; Visit Provider Physician Assistant
DX: D64.9 Anemia, unspecified (principal); Z11.3 Encounter for screening for infections with a predominantly sexual mode of transmission
CPT/HCPCS: 82274; 86592; 86695; 86696; 86803; 87340; 87389; 87491; 87591

== ENCOUNTER → 2023-06-26 15:49 | Outpatient (CLI) | payer OTHER, MEDICAID, SELFPAY ==
[2023-06-26 20:12] LABS: Urine N gonorrhoeae NOT DETECTED
[2023-06-26 20:18] LABS: Urine Chlamydia NOT DETECTED
== END ==
PROVIDERS: PCP Physician Assistant; Visit Provider Physician Assistant
DX: Z11.3 Encounter for screening for infections with a predominantly sexual mode of transmission (principal)
CPT/HCPCS: 87491; 87591

== ENCOUNTER → 2023-07-10 11:05 | Outpatient (CLI) | payer OTHER, MEDICAID, SELFPAY ==
[2023-07-10 19:34] LABS: Add Manual Diff / Slide Review NO; Basophils Absolute Auto 100 /uL (0-100); Basophils Percent Auto 0.6 % (0-2); Eosinophils Absolute Auto 100 /uL (0-450); Eosinophils Percent Auto 0.7 % (2-4); Hematocrit 40.3 % (41-53); Hemoglobin 14.3 g/dL (13.5-17.5); Lymphocytes Absolute Auto 2000 /uL (1100-4500); Lymphocytes Percent Auto 21.5 % (25-40); Mean Corpuscular HGB Conc 35.4 % (30-36); Mean Corpuscular Volume 96.2 fL (80-100); Monocytes Absolute Auto 700 /uL (0-900); Monocytes Percent Auto 7.8 % (3-14); Neutrophils Absolute Auto 6500 /uL (1500-7000); Neutrophils Percent Auto 69.4 % (50-75); Platelet Count 206 X10^3/uL (150-400); Red Blood Cell Count 4.19 X10^6/uL (4.5-5.9); White Blood Cell Count 9.3 X10^3/uL (4.5-11.0)
[2023-07-10 19:41] LABS: Alanine Aminotransferase 15 IU/L (<50); Albumin 4.2 g/dL (3.5-5.0); Albumin Globulin Ratio 1.4 (1.0-2.8); Alkaline Phosphatase 48 U/L (38-126); Aspartate Aminotransferase 23 IU/L (17-59); BUN Creatinine Ratio 9.5 (6-22); Bilirubin Total 0.7 mg/dL (0.2-1.3); Bilirubin Unconjugated 0.3 mg/dL (0.0-1.1); Blood Urea Nitrogen 7 mg/dL (9-20); Calcium 9.7 mg/dL (8.4-10.2); Carbon Dioxide 26 mmol/L (22-32); Chloride 104 mmol/L (98-107); Estimated Glomerular Filt Rate > 60 mL/min (>60); Glucose 106 mg/dL (70-100); HEMOLYSIS < 15 (0-50); Potassium 4.4 mmol/L (3.4-5.1); Sodium 137 mmol/L (137-145); Total Protein 7.2 g/dL (6.3-8.2)
[2023-07-11 17:28] LABS: Hepatitis B Surface Antigen NEGATIVE s/c (NEGATIVE)
[2023-07-11 17:53] LABS: HIV 1 & 2 Ab/Ag 4th Gen Combo NEGATIVE (NEGATIVE); Hep C Virus Ab w/Reflex Quant NEGATIVE s/c (NEGATIVE)
[2023-07-13 02:07] LABS: RPR Screen Non Reactive (Non Reactive)
== END ==
PROVIDERS: PCP Physician Assistant; Visit Provider Physician Assistant
DX: Z11.3 Encounter for screening for infections with a predominantly sexual mode of transmission (principal); F10.180 Alcohol abuse with alcohol-induced anxiety disorder; F41.9 Anxiety disorder, unspecified
CPT/HCPCS: 80053; 80076; 85025; 86592; 86803; 87340; 87389

== ENCOUNTER → 2023-09-09 13:09 | Outpatient (CLI) | payer OTHER, MEDICAID, SELFPAY ==
[2023-09-09 19:37] LABS: Add Manual Diff / Slide Review NO; Basophils Absolute Auto 100 /uL (0-100); Basophils Percent Auto 0.9 % (0-2); Eosinophils Absolute Auto 0 /uL (0-450); Eosinophils Percent Auto 0.5 % (2-4); Hematocrit 40.2 % (41-53); Lymphocytes Absolute Auto 1900 /uL (1100-4500); Lymphocytes Percent Auto 24.8 % (25-40); Mean Corpuscular HGB Conc 34.9 % (30-36); Mean Corpuscular Hemoglobin 33.5 PG (26-34); Mean Corpuscular Volume 96.1 fL (80-100); Monocytes Absolute Auto 600 /uL (0-900); Neutrophils Absolute Auto 4900 /uL (1500-7000); Neutrophils Percent Auto 65.8 % (50-75); Platelet Count 198 X10^3/uL (150-400); Red Blood Cell Count 4.18 X10^6/uL (4.5-5.9); Red Cell Distribution Width 12.5 % (11.6-14.8); White Blood Cell Count 7.5 X10^3/uL (4.5-11.0)
== END ==
PROVIDERS: PCP Physician Assistant; Visit Provider Physician Assistant
DX: Z11.3 Encounter for screening for infections with a predominantly sexual mode of transmission (principal); D64.9 Anemia, unspecified
CPT/HCPCS: 85025

== ENCOUNTER → 2024-04-29 11:04 | Outpatient (CLI) | payer OTHER, MEDICAID, SELFPAY ==
[2024-04-29 20:28] LABS: Add Manual Diff / Slide Review NO; Basophils Absolute Auto 0 /uL (0-100); Basophils Percent Auto 0.6 % (0-2); Eosinophils Absolute Auto 100 /uL (0-450); Eosinophils Percent Auto 0.8 % (2-4); Hematocrit 41.2 % (41-53); Hemoglobin 14.3 g/dL (13.5-17.5); Lymphocytes Absolute Auto 1700 /uL (1100-4500); Lymphocytes Percent Auto 26.4 % (25-40); Mean Corpuscular HGB Conc 34.8 % (30-36); Mean Corpuscular Hemoglobin 32.7 PG (26-34); Monocytes Absolute Auto 500 /uL (0-900); Monocytes Percent Auto 7.7 % (3-14); Neutrophils Absolute Auto 4200 /uL (1500-7000); Neutrophils Percent Auto 64.5 % (50-75); Platelet Count 202 X10^3/uL (150-400); Red Blood Cell Count 4.38 X10^6/uL (4.5-5.9); Red Cell Distribution Width 12.4 % (11.6-14.8); White Blood Cell Count 6.6 X10^3/uL (4.5-11.0)
[2024-04-29 20:30] LABS: HEMOLYSIS < 15 (0-50); Iron 90 ug/dL (49-181)
[2024-04-29 20:38] LABS: Alanine Aminotransferase 15 IU/L (<50); Albumin 4.4 g/dL (3.5-5.0); Albumin Globulin Ratio 1.6 (1.0-2.8); Alkaline Phosphatase 73 U/L (38-126); Aspartate Aminotransferase 25 IU/L (17-59); BUN Creatinine Ratio 18.2 (6-22); Bilirubin Total 0.6 mg/dL (0.2-1.3); Blood Urea Nitrogen 14 mg/dL (9-20); Calcium 9.8 mg/dL (8.4-10.2); Carbon Dioxide 25 mmol/L (22-32); Chloride 107 mmol/L (98-107); Estimated Glomerular Filt Rate > 60 mL/min (>60); Globulin 2.7 g/dL (1.7-4.1); Glucose 85 mg/dL (70-100); HEMOLYSIS < 15 (0-50); Potassium 4.6 mmol/L (3.4-5.1); Sodium 139 mmol/L (137-145); Total Protein 7.1 g/dL (6.3-8.2)
[2024-04-29 20:41] LABS: Percent Iron Saturation 28 % (20-50); Total Iron Binding Capacity 326 ug/dL (261-462); Transferrin 256 mg/dL (206-381)
[2024-04-29 20:44] LABS: Erythrocyte Sedimentation Rate 5 MM/HR (0-15)
[2024-04-29 20:54] LABS: Free T3, Triiodothyronine Free 4.54 pg/mL (2.77-5.27)
[2024-04-29 21:06] LABS: Ferritin 26 ng/mL (18-464)
[2024-04-29 21:08] LABS: TSH w/ Reflex to FT4 0.52 uIU/mL (0.47-4.68)
[2024-04-29 21:12] LABS: Prostate Specific Antigen 0.641 ng/mL (0.10-4.00)
== END ==
PROVIDERS: PCP Physician Assistant; Visit Provider Physician Assistant
DX: D64.9 Anemia, unspecified (principal); F10.180 Alcohol abuse with alcohol-induced anxiety disorder; R19.8 Other specified symptoms and signs involving the digestive system and abdomen; M25.50 Pain in unspecified joint; R53.83 Other fatigue; F32.A Depression, unspecified
CPT/HCPCS: 80053; 82728; 83540; 83550; 84153; 84443; 84481; 85025; 85651